=== PATIENT | female | born 1950 | race Caucasian/White ===

== ENCOUNTER → 2017-07-21 | Outpatient (CLI) | payer OTHER | LOC: CIMAGING 07:25 → CLAB 07:25 → EDSTATUS 08-01 07:18 | PROVIDERS: ATTEND Family Medicine | DX: Z12.31 Encounter for screening mammogram for malignant neoplasm of breast (principal) | CPT/HCPCS: G0202 ==

== ENCOUNTER → 2017-08-04 | Outpatient (CLI) | payer OTHER | LOC: CIMAGING 12:54 | PROVIDERS: ATTEND Family Medicine | DX: Z03.89 Encounter for observation for other suspected diseases and conditions ruled out (principal) ==

== ENCOUNTER → 2017-08-31 | Outpatient (CLI) | payer OTHER | LOC: FIMAGING 08:23 | PROVIDERS: ATTEND Family Medicine | DX: Z13.820 Encounter for screening for osteoporosis (principal); M81.0 Age-related osteoporosis without current pathological fracture ==

== ENCOUNTER 2017-11-04 17:30 | Emergency (ER) | payer OTHER ==
--- NOTE | 2017-11-04 18:13 | EDPHY ---
H & P Time Seen by Provider: 11/04/17 17:38 HPI/ROS: This patient tripped on a curb 30 min prior to arrival landing on outstretched left hand with pain since that time to the ulnar aspect of her left wrist that is mild in intensity achy in nature associated with paresthesias. She describes the intensity the pain as 2 or 3/10. She has not taken any medication for this. She is concerned about potential pathologic fracture because she is told recently that she has advancing osteoporosis. Her brought her here by private vehicle for evaluation of her injury. She reports that she lightly bumped her lip is while in the ground but denies any significant injury from this. ROS: Neuro: She was not dazed from the fall. No LOC. No headache. HEENT: No dental injury. Integumentary: No lacerations abrasions Musculoskeletal: She bumped her right knee but denies any injuries from that. She has no knee pain currently. No difficulty walking. 5 point ROS is otherwise negative. Past Medical/Surgical History: Osteoporosis. Smoking Status: Former smoker Physical Exam: Physical Exam Vital signs are normal. General: No acute distress HEENT: Atraumatic. Eyes: Pupils equal and react to light. Extraocular motions are intact. Lungs: No respiratory distress. Cardiac: Brisk capillary refill is intact throughout. Pulses are 2+ and symmetric in the affected extremity. Skin: No rash or pallor. Musculoskeletal: Atraumatic except for left wrist Left wrist: Patient has tenderness to the ulnar styloid. No radial tenderness or in time of snuffbox tenderness. No finger swelling or pain. She is able to move the hand in all directions despite the wrist pain. There is no ecchymosis. No lacerations or abrasions. No hand trauma is evident. Neuro: Alert and oriented x3 with no sensorimotor deficits. Initial differential diagnosis: Wrist contusion, wrist fracture, wrist sprain Constitutional: Initial Vital Signs Temperature (C) 36.6 C 11/04/17 17:39 Heart Rate 85 11/04/17 17:39 Respiratory Rate 16 11/04/17 17:39 Blood Pressure 160/83 H 11/04/17 17:39 O2 Sat (%) 95 11/04/17 17:39 O2 Delivery Mode Room Air Allergies/Adverse Reactions: No Known Allergies Allergy (Verified 11/04/17 17:38) Home Medications: Medication Instructions Recorded Lexapro 11/04/17 Supplements 11/04/17 MDM/Departure - MDM Diagnostics: Wrist x-ray: Negative for fracture by my interpretation. There is mild soft tissue swelling ulnar aspect of carpal bones. Imaging: I viewed and interpreted images myself ED Course/Re-evaluation: Our tech placed the patient in a Velcro wrist splint with my supervision. Patient is neurovascularly intact post splint application. - Depart Disposition: Home, Routine, Self-Care Clinical Impression: Sprain of wrist, left Qualifiers: Encounter type: initial encounter Qualified Code(s): S63.502A - Unspecified sprain of left wrist, initial encounter Condition: Good Instructions: Wrist Sprain (ED) Additional Instructions: Diagnosis: Wrist sprain Plan: Ice 20 min at a time 3 times a day until symptoms improve Ibuprofen and Tylenol for pain is as needed. Velcro wrist splint until symptoms improve Limit activity with injured wrist until symptoms improve Follow up with orthopedic physician listed below if he have any ongoing symptoms that persist beyond the next week despite the treatment plan Referrals: Santiago Ahn MD [Primary Care Provider] - As per Instructions Lizeth Valdivia MD [Medical Doctor] - As per Instructions
[2017-11-04 18:59] VITALS: BP 145/82
== END 2017-11-04 18:52 | disposition home or self-care (01) ==
LOC: CED 17:30
DX: S63.502A Unspecified sprain of left wrist, initial encounter (principal); Z87.891 Personal history of nicotine dependence; W18.40XA Slipping, tripping and stumbling without falling, unspecified, initial encounter
CPT/HCPCS: 73110; 99283; L3908